=== PATIENT | female | born 1965 | race Two or more races ===

== ENCOUNTER 2017-09-17 14:17 | Emergency (ER) | payer MEDICARE, OTHER ==
--- NOTE | 2017-09-17 15:18 | NUR ---
PT DECIDED TO COMEBACK TOMORROW MORNING.
== END 2017-09-17 15:21 | disposition home or self-care (01) ==
LOC: ER 14:17
DX: Z53.21 Procedure and treatment not carried out due to patient leaving prior to being seen by health care provider (principal)

== ENCOUNTER 2017-10-02 15:00 | Emergency (ER) | payer MEDICARE, OTHER ==
[~2017-10-02] VITALS: Ht 157.5 cm; Wt 68.0 kg
--- NOTE | 2017-10-02 15:21 | NUR ---
52 YRS OLD AMBULATORY FEMALE, STATING SHE HAS AN EAR INFECTION - DOES NOT WANT TO GO THROUGH TRIAGE NOR HAVE HER VITAL SIGNS CHECKED - MD NOTIFIED.
[2017-10-02] MEDS ORDERED: AMOXICILLIN-CLAVUL 875-125MG TABLET PO ONE (16:45)
[2017-10-02] MEDS ORDERED: AMOXICILLIN-CLAVUL 875-125MG TABLET ONE (16:49)
--- NOTE | 2017-10-02 16:52 | NUR ---
Patient discharged to home in stable conditon. Written and verbal after care instructions given. Patient verbalizes understanding of instructions.
== END 2017-10-02 16:59 | disposition home or self-care (01) ==
LOC: ER 15:02
DX: H66.92 Otitis media, unspecified, left ear (principal); F17.200 Nicotine dependence, unspecified, uncomplicated
CPT/HCPCS: 99283; A4663